=== PATIENT | male | born 1940 | race Caucasian/White ===

== ENCOUNTER 2022-09-06 08:30 | Emergency (ER) | payer MEDICARE, BC ==
[~2022-09-06] VITALS: Ht 177.8 cm; Wt 77.1 kg
[~2022-09-06 08:30] MED LIST: ASPIRIN EC81 MG PO; DIPHENOXYLATE-1 EACH PO; FLOMAX0.4 MG PO; LIPITOR80 MG PO; NEXIUM40 MG PO; PLAVIX75 MG PO
[2022-09-06] MEDS ORDERED: KETOROLAC TROMETHAMINE 60 MG/2 ML VIAL IM ONE (09:30)
== END 2022-09-06 10:01 | disposition home or self-care (01) ==
LOC: ER 08:43
DX: R51.9 Headache, unspecified (principal)
CPT/HCPCS: 70450; 99283; J1885